=== PATIENT | male | born 1990 | race Caucasian/White ===

== ENCOUNTER 2016-05-16 17:03 | Emergency (ER) | payer OTHER ==
[2016-05-16 17:15] VITALS: BP 128/65; PULSE 51; RESP 16; TEMP 98.4; O2SAT 96
--- NOTE | 2016-05-16 18:10 | UCPHY ---
H & P Time Seen by Provider: 05/16/16 18:05 Patient Type: New HPI/ROS: CHIEF COMPLAINT: Sinus congestion, sore throat HISTORY OF PRESENT ILLNESS: 25-year-old male reporting 2 weeks of ongoing worsening sinus congestion, facial pain, no sore throat. He also developed pain in his left ear after traveling on an airplane. Reports is unable to work well secondary to the headache pain from his son's congestion. He has been taking Mucinex. No fever. No significant cough or chest congestion. No sputum production. No chest pain or shortness of breath. No fever, chills, chest pain, shortness of breath, palpitations, vomiting, diarrhea, urinary complaints, lightheadedness. REVIEW OF SYSTEMS: Aside from elements discussed in the HPI, a comprehensive 10-point review of systems was reviewed and is negative. PAST MEDICAL HISTORY: Denies. SOCIAL HISTORY: Does not smoke cigarettes but smokes marijuana. VITAL SIGNS: see nurse's notes. GENERAL: Well-developed, well-nourished, in no acute distress. HEENT: Atraumatic Eyes: PERRL, EOMI, no conjunctival injection. Ears: Left tympanic membrane is erythematous. Right TM is clear. Nose: No discharge. Tenderness to percussion over the maxillary sinuses bilaterally. Mouth: moist mucous membranes. Pharynx: no erythema, no exudates, no swelling, no abscess. Uvula is midline. NECK: Supple, no adenopathy, no meningismus, no tenderness. Negative Kernig's and Brudzinski's. LUNGS: Clear to auscultation bilaterally, no wheezes, rhonchi or rales. CARDIAC: Regular rate and rhythm, no rubs, murmurs or gallops. ABDOMEN: Benign. BACK: No CVA tenderness. EXTREMITIES: Normal, no edema, FROM. NEURO: Alert and oriented, grossly nonfocal. SKIN: Warm and dry, no rash. PSYCHIATRIC: Normal mentation, no agitation. Smoking Status: Never smoked Constitutional: Initial Vital Signs Temperature (C) 36.9 C 05/16/16 17:12 Heart Rate 51 L 05/16/16 17:12 Respiratory Rate 16 05/16/16 17:12 Blood Pressure 128/65 H 05/16/16 17:12 O2 Sat (%) 96 05/16/16 17:12 O2 Delivery Mode Room Air Allergies/Adverse Reactions: amoxicillin Allergy (Verified 05/16/16 17:12) Home Medications: Medication Instructions Recorded AZITHROMYCIN [Z-PACK] 250 - 500 mg PO DAILY #6 tab 05/16/16 Hydrocodone/APAP 5/325 [Coleman 1 tab PO Q6H PRN #10 tab 05/16/16 5/325 (RX)] Medical Decision Making ED Course/Re-evaluation: Patient was placed on azithromycin for treatment of his otitis media as well as treatment of his possible sinusitis. He was encouraged to obtain Flonase. He requests narcotic pain control for his significant headache and facial pain. Strep screen was negative. Differential Diagnosis: Differential diagnosis of the patient's symptom complex was considered including but not limited to viral upper respiratory infection, otitis media, sinusitis, tonsillitis, mastoiditis, strep pharyngitis. - Data Points Laboratory Results: 05/16/16 05/16/16 Unknown 17:16 Group A Strep Screen NEGATIVE (NEGATIVE) Group A Strep DNA Pending Departure - Departure Disposition: Home, Routine, Self-Care Clinical Impression: Otitis media Sinusitis Qualifiers: Qualifier Code: ([id number]) Acute maxillary sinusitis, unspecified Condition: Good Instructions: Sinusitis (ED), Otitis Media (ED) Additional Instructions: Your rapid strep screen is negative. For your congestion and facial pain, I suggest Flonase which is available over the counter as well as an oral decongestant such as Sudafed. Afrin nasal spray may be helpful for at nighttime. Please take the antibiotic as directed. I recommend Ibuprofen (Motrin, Advil) or Naproxen Sodium (Aleve) for mild-to- moderate pain and anti-inflammatory effects. You may take either one, but do not take both. Your dose is: Ibuprofen 600 mg every 6-8 hours with food. OR Naproxen Sodium (Aleve) 220 mg every 12 hours. For severe facial pain you may take the hydrocodone. Please follow up with your primary care physician if you're not improving as expected. Referrals: NONE *PRIMARY CARE P,. [Primary Care Provider] - As per Instructions Prescriptions: Hydrocodone/APAP 5/325 [Coleman 5/325 (RX)] 1 tab PO Q6H PRN #10 tab PRN Reason: Pain AZITHROMYCIN [Z-PACK] 250 - 500 mg PO DAILY #6 tab - PQRS PQRS Measurement: Not applicable
== END 2016-05-16 18:38 | disposition home or self-care (01) ==
LOC: CED 17:03
DX: H66.92 Otitis media, unspecified, left ear (principal); J01.00 Acute maxillary sinusitis, unspecified
CPT/HCPCS: 87880-PO; 99214-PO; G0463-PO